=== PATIENT | male | born 1965 | race Caucasian/White ===

== ENCOUNTER → 2017-08-08 | Outpatient (CLI) | payer OTHER ==
[~2017-08-08] MED LIST: SEROQUEL300 MG PO
== END | disposition home or self-care (01) ==
LOC: CDC 11:43
DX: I45.4 Nonspecific intraventricular block (principal); M24.442 Recurrent dislocation, left hand; S63.287A Dislocation of proximal interphalangeal joint of left little finger, initial encounter; I10 Essential (primary) hypertension
CPT/HCPCS: 93000

== ENCOUNTER 2017-09-04 18:33 | Emergency (ER) | payer OTHER ==
[~2017-09-04] VITALS: Ht 172.7 cm; Wt 68.7 kg
[2017-09-04] MEDS ORDERED: VALTREX1000 MG PO (20:19)
[2017-09-04] MEDS ORDERED: KENALOG,ARISTOC15 GM TP (20:19)
[2017-09-04] MEDS ORDERED: BENADRYL50 MG PO (20:19)
[2017-09-04 20:28] VITALS: BP 131/86
== END 2017-09-04 20:28 | disposition home or self-care (01) ==
LOC: EME 18:33
DX: L20.9 Atopic dermatitis, unspecified (principal); K21.9 Gastro-esophageal reflux disease without esophagitis; F41.9 Anxiety disorder, unspecified; F31.9 Bipolar disorder, unspecified; F17.200 Nicotine dependence, unspecified, uncomplicated; I25.2 Old myocardial infarction; Z86.73 Personal history of transient ischemic attack (TIA), and cerebral infarction without residual deficits; Z87.820 Personal history of traumatic brain injury
CPT/HCPCS: 99281; 99283